=== PATIENT | female | born 1990 | race African-American/Black ===

== ENCOUNTER 2017-09-01 19:19 | Emergency (ER) | payer OTHER ==
[~2017-09-01] VITALS: Ht 175.3 cm; Wt 100.0 kg
[~2017-09-01 19:19] MED LIST: MACR100C PO; POLY255S PO; Z.0.BCPILL PO
[2017-09-01 19:20] VITALS: BP 143/98; PULSE 94; RESP 16; TEMP 99.1; O2SAT 98
[2017-09-01 21:17] VITALS: O2SAT 100
--- NOTE | 2017-09-01 21:26 | PD ---
HPI Chief Complaint: GI Complaint Time Seen by Provider: 21:11 Travel History International Travel<30 days: No Contact w/Intl Traveler<30days: No Traveled to known affect area: No History of Present Illness HPI The patient is a 26 year old female who presents to the [facility] emergency department with a history of rectal bleeding that recurred a week ago. The patient reports that she's had intermittent problems with rectal bleeding for years. She reports that she has a history of chronic constipation and initially developed bleeding after starting MiraLAX for the constipation. She has since then discontinued any type of stool softeners or laxatives. She reports that she is followed by Dr. Monique for her GI care. She reports that she last had a colonoscopy in May 2017. She reports that the only abnormality that has been noted on her repeat colonoscopies is hemorrhoids. The patient reports that this time the rectal bleeding is dark. Then usual and has a strong odor. She reports that it is maroon in color. She reports that she last had a regular bowel movement on . She reports that today she has been experiencing lightheaded sensation and generalized fatigue and been sleeping throughout most of the day. She reports that she also has a bitemporal headache. Otherwise on review of systems, the patient denies any known recent fevers, cough, congestion, neck pain, chest pain, shortness of breath, abdominal pain, vomiting, diarrhea, urinary symptoms, or neurologic symptoms. The patient denies any prior history of anemia or history of blood transfusions. LMP: Started today PFSH Past Medical History Narrative Medical The patient's past medical history is significant for having hemorrhoids, chronic constipation. Diminished Hearing: No Gastrointestinal Disorders: Yes ?: Unknown LMP: current Menopausal: No : 1 Para: 0 Miscarriage: 1 Past Surgical History Narrative Surgical The patient's past surgical history is significant for left hip surgery as an 10 -year-old. Social History Alcohol Use: No Tobacco Use: No Substance Use: No Allergies-Medications (Allergen,Severity, Reaction): Coded Allergies: No Known Allergies (Verified , 09/01/17) Reported Meds & Prescriptions Reported Meds & Active Scripts Active No Active Prescriptions or Reported Medications Review of Systems Except as stated in HPI: all other systems reviewed are Neg General / Constitutional: No: Fever Eyes: No: Visual changes HENT: Positive: Lightheadedness, No: Headaches Cardiovascular: No: Chest Pain or Discomfort Respiratory: No: Shortness of Breath Gastrointestinal: Positive: Hematochezia, No: Nausea, Vomiting, Diarrhea, Abdominal Pain, Indigestion, Loss of Appetite Genitourinary: No: Dysuria Musculoskeletal: No: Pain Skin: No Rash Neurologic: Positive: Weakness (generalized fatigue), No: Focal Abnormalities, Change in Mentation, Slurred Speech, Sensory Disturbance Psychiatric: No: Depression Endocrine: No: Polydipsia Hematologic/Lymphatic: No: Easy Bruising Physical Exam Narrative General: The patient is a well-developed well-nourished female in no acute distress. Head and Neck exam: Head is normocephalic atraumatic. Eyes: EOMI, pupils are equal round and reactive to light. Nose: Midline septum with pink mucous membranes Mouth: Dentition unremarkable. Moist mucus membranes. Posterior oropharynx is not erythematous. No tonsillar hypertrophy. Uvula midline. Airway patent. Neck: No palpable lymphadenopathy. No nuchal rigidity. No thyromegaly. Cardiovascular: Regular rate and rhythm without murmurs, gallops, or rubs. Lungs: Clear to auscultation bilaterally. No wheezes, rhonchi, or rales. Abdomen: Soft, without tenderness to palpation in all 4 quadrants of the abdomen. No guarding, rebound, or rigidity. Normal bowel sounds are audible. No tenderness on palpation of McBurney's point. Extremities: No clubbing, cyanosis, or edema. 2+ pulses in all 4 extremities. No calf tenderness on palpation Back: No costovertebral angle tenderness to palpation. Neurologic Exam: Grossly nonfocal. Skin Exam: No rash noted. Intact skin that is warm and dry. RECTAL EXAM: The patient has older appearing external hemorrhoids that are not acutely thrombosed or tender on palpation. There is no active bleeding noted. The patient has no rectal masses. She has normal tone. There is no stool in the rectal vault. Mucus was Hemoccult negative. Data Data Last Documented VS Vital Signs Date Time Temp Pulse Resp B/P (MAP) Pulse Ox O2 Delivery O2 Flow Rate FiO2 09/01/17 21:17 100 Room Air 09/01/17 21:11 18 09/01/17 19:20 99.1 94 Orders Orders Complete Blood Count With Diff (09/01/17 21:06) Comprehensive Metabolic Panel (09/01/17 21:06) Prothrombin Time / Inr (Pt) (09/01/17 21:06) Act Partial Throm Time (Ptt) (09/01/17 21:06) Iv Access Insert/Monitor (09/01/17 21:12) Ecg Monitoring (09/01/17 21:12) Oximetry (09/01/17 21:12) Labs Laboratory Tests Test 09/01/17 21:15 White Blood Count 5.6 TH/MM3 Red Blood Count 4.65 MIL/MM3 Hemoglobin 14.1 GM/DL Hematocrit 40.0 % Mean Corpuscular Volume 86.0 FL Mean Corpuscular Hemoglobin 30.3 PG Mean Corpuscular Hemoglobin Concent 35.2 % Red Cell Distribution Width 13.9 % Platelet Count 278 TH/MM3 Mean Platelet Volume 8.6 FL Neutrophils (%) (Auto) 50.3 % Lymphocytes (%) (Auto) 40.0 % Monocytes (%) (Auto) 6.9 % Eosinophils (%) (Auto) 2.1 % Basophils (%) (Auto) 0.7 % Neutrophils # (Auto) 2.8 TH/MM3 Lymphocytes # (Auto) 2.3 TH/MM3 Monocytes # (Auto) 0.4 TH/MM3 Eosinophils # (Auto) 0.1 TH/MM3 Basophils # (Auto) 0.0 TH/MM3 CBC Comment DIFF FINAL Differential Comment Prothrombin Time 11.4 SEC Prothromb Time International Ratio 1.0 RATIO Activated Partial Thromboplast Time 24.6 SEC Blood Urea Nitrogen 8 MG/DL Creatinine 0.86 MG/DL Random Glucose 84 MG/DL Total Protein 8.8 GM/DL Albumin 4.0 GM/DL Calcium Level 9.4 MG/DL Alkaline Phosphatase 61 U/L Aspartate Amino Transf (AST/SGOT) 30 U/L Alanine Aminotransferase (ALT/SGPT) 30 U/L Total Bilirubin 0.5 MG/DL Sodium Level 136 MEQ/L Potassium Level 4.4 MEQ/L Chloride Level 102 MEQ/L Carbon Dioxide Level 26.5 MEQ/L Anion Gap 8 MEQ/L Estimat Glomerular Filtration Rate 96 ML/MIN MDM Medical Decision Making Medical Screen Exam Complete: Yes Emergency Medical Condition: Yes Medical Record Reviewed: Yes Differential Diagnosis GI bleed related to hemorrhoids, versus AVM, versus diverticulosis Narrative Course During the course of the patients emergency department visit, the patients history, examination, and differential diagnosis were reviewed with the patient. The patient had IV access obtained and blood work sent for analysis. The patient was placed on a byproduct engineer with oximetry and blood pressure monitoring. The patients laboratory studies were reviewed and remarkable for a CBC that is within normal limits with a hemoglobin of 14.1. CMP is remarkable for a total protein of 8.8, PT PTT within normal limits. The patient will be discharged home to follow-up with her tip puncher, . The patient is resting comfortably and feels better, is alert and in no distress. The patients results and examination findings were discussed with the patient. The repeat examination is unremarkable and benign. The history, exam, diagnostic testing, and current condition do not suggest any significant pathology to warrant further testing, continued ED treatment, admission, or surgical evaluation at this point. The vital signs have been stable. The patient does not have uncontrollable pain, intractable vomiting, or other significant symptoms. The patient's condition is stable and appropriate for discharge. The patient will pursue further outpatient evaluation with a primary care physician or other designated or consulting physician as indicated in the discharge instructions. The patient expressed understanding and was agreeable with this plan. [facility] Point of Care Internal Pos. & Neg. Controls: Passed Fecal Specimen Occult Blood: Negative Diagnosis Primary Impression: Hemorrhoids Qualified Codes: K64.9 - Unspecified hemorrhoids Additional Impression: Chronic constipation Referrals: Susan Monique MD 3 days Additional Instructions: The patient is instructed to walk 30 minutes daily to assist with alleviation of her constipation. The patient is instructed to drink 8 glasses of water daily. The patient is instructed to increase the fiber in her diet by eating green leafy vegetables and beans. The patient is also instructed that she can supplement the fiber in her diet with Benefiber. Med/Other Pt SpecificInfo: Prescription(s) given Scripts No Active Prescriptions or Reported Meds Disposition: 01 DISCHARGE HOME Condition: Stable Coty Khan MD Sep 01, 2017 21:26
[2017-09-01 21:34] LABS: AUTOMATED NEUTROPHIL # 2.8 TH/MM3 (1.8-7.7); BASOPHIL % 0.7 % (0.0-2.0); EOSINOPHIL # 0.1 TH/MM3 (0-0.4); EOSINOPHIL % 2.1 % (0.0-4.0); HEMO FLAGS DIFF FINAL; LYMPHOCYTE # 2.3 TH/MM3 (1.0-4.8); MEAN CORPUSCULAR HEMOGLOBIN 30.3 PG (27.0-34.0); MEAN CORPUSCULAR HGB CONC 35.2 % (32.0-36.0); MONO % 6.9 % (0.0-8.0); NEUT % 50.3 % (16.0-70.0); PLATELET COUNT 278 TH/MM3 (150-450); RED BLOOD COUNT 4.65 MIL/MM3 (4.00-5.30); RED CELL DISTRIBUTION WIDTH 13.9 % (11.6-17.2); WHITE BLOOD COUNT 5.6 TH/MM3 (4.0-11.0)
[2017-09-01 21:40] LABS: APTT (PATIENT) 24.6 SEC (24.3-30.1); PROTHROMBIN TIME - PATIENT 11.4 SEC (9.8-11.6)
[2017-09-01 21:51] LABS: ALKALINE PHOSPHATASE 61 U/L (45-117); ALT (GPT) 30 U/L (10-53); ANION GAP 8 MEQ/L (5-15); AST (GOT) 30 U/L (15-37); BICARBONATE 26.5 MEQ/L (21.0-32.0); BLOOD UREA NITROGEN 8 MG/DL (7-18); CHLORIDE 102 MEQ/L (98-107); GLOMERULAR FILTRATION RATE 96 ML/MIN (>89); SODIUM (NA) 136 MEQ/L (136-145); TOTAL BILIRUBIN ADULT 0.5 MG/DL (0.2-1.0)
[2017-09-01 21:54] LABS: POTASSIUM 4.4 MEQ/L (3.5-5.1)
== END 2017-09-01 22:49 | disposition home or self-care (01) ==
LOC: NEPE 19:19
DX: K64.9 Unspecified hemorrhoids (principal); K59.09 Other constipation; R42 Dizziness and giddiness; R53.83 Other fatigue; R51 Headache; K92.1 Melena; Z87.19 Personal history of other diseases of the digestive system
CPT/HCPCS: 80053; 85025; 85610; 85730; 99284